=== PATIENT | male | born 1970 | race Caucasian/White ===

== ENCOUNTER 2021-07-30 09:26 | Emergency (ER) | payer BC, MEDICAID ==
[~2021-07-30] VITALS: Ht 172.7 cm; Wt 96.4 kg
[2021-07-30 09:30] VITALS: BP 162/71
[2021-07-30] MEDS ORDERED: LIDO700A32 TOP (10:07)
== END 2021-07-30 10:09 | disposition home or self-care (01) ==
LOC: ER 09:26
DX: S29.011A Strain of muscle and tendon of front wall of thorax, initial encounter (principal); E78.00 Pure hypercholesterolemia, unspecified; Z87.442 Personal history of urinary calculi; Z79.899 Other long term (current) drug therapy; X58.XXXA Exposure to other specified factors, initial encounter; Y93.89 Activity, other specified; Y92.89 Other specified places as the place of occurrence of the external cause; Y99.8 Other external cause status
CPT/HCPCS: 99282

== ENCOUNTER 2023-08-27 11:09 | Emergency (ER) | payer BC, MEDICAID ==
[~2023-08-27 11:09] MED LIST: LIDO700A32 TOP
[2023-08-27 11:18] VITALS: TEMP 98.5
[2023-08-27] MEDS ORDERED: ketorolac trometh. 30mg/ml inj. IV ONE (12:00)
[2023-08-27] MEDS: ketorolac tromethamine 15mg/ml inj. IV ONE (12:19)
[2023-08-27 12:22] LABS: BASOPHILS % (AUTO) 0.4 % (0-1); EOSINOPHILS # (AUTO) 0.1 X10'3 (0-0.9); HEMATOCRIT 42.7 % (42.0-52.0); LYMPHOCYTES # (AUTO) 0.9 X10'3 (1.1-4.8); MEAN CORPUSCULAR HEMOGLOBIN 30.9 PG (27.0-31.0); MEAN CORPUSCULAR HGB CONC 35.1 g/dL (33.0-36.5); MEAN CORPUSCULAR VOLUME 88.2 FL (78-98); MEAN PLATELET VOLUME 9.4 FL (7.4-10.4); MONOCYTES # (AUTO) 0.5 X10'3 (0-0.9); MONOCYTES % (AUTO) 5.2 % (2-12); NEUTROPHILS # (AUTO) 8.5 X10'3 (1.8-7.7); NEUTROPHILS % (AUTO) 84.4 % (42-75); PLATELET COUNT 208 X10'3 (140-440); RED BLOOD COUNT 4.84 X10'6 (4.70-6.10); RED CELL DISTRIBUTION WIDTH 12.6 % (11.5-14.5)
[2023-08-27 12:23] LABS: BILIRUBIN,URINE NEGATIVE (Neg); CLARITY,URINE CLOUDY (Clear); COLOR,URINE YELLOW (Yellow); GLUCOSE, URINE NEGATIVE (Neg); KETONES,URINE NEGATIVE (Neg); LEUKOCYTE ESTERASE ,URINE NEGATIVE (Neg); NITRITES, URINE NEGATIVE (Neg); OCCULT BLOOD,URINE LARGE (Neg); PROTEIN,URINE NEGATIVE (Neg); UROBILINOGEN,URINE 0.2 E.U/dL (0.2-1.0)
[2023-08-27 12:33] LABS: UA COLLECTION TYPE CLN CATCH MIDSTREAM
[2023-08-27 12:34] LABS: RBC,URINE TNTC /HPF (0-2)
[2023-08-27 12:36] LABS: AMORPHOUS PHOSPHATES 3+
[2023-08-27 12:38] LABS: BACTERIA,URINE 1+ /HPF (Neg); SQUAMOUS EPITHELIAL CELL,UR FEW /LPF (FEW)
[2023-08-27 12:47] LABS: ANION GAP 8 (8-16); BLOOD UREA NITROGEN 18 MG/DL (7-18); BUN/CREATININE RATIO 15.8 (10.0-20.0); CALCIUM 9.2 MG/DL (8.5-10.1); CHLORIDE 109 MMOL/L (99-107); CREATININE 1.14 MG/DL (0.60-1.10); GLUCOSE 105 MG/DL (70-104); POTASSIUM 4.1 MMOL/L (3.5-5.1); SODIUM 143 MMOL/L (135-145); eGFR 67 ML/MIN
[2023-08-27] MEDS: normal saline 1000ML IV soln IVB ONE (13:16)
[2023-08-27] MEDS: CefTRIAXone 2gm/D5W 50ml BAG 50 ML IV ONE (13:16)
[2023-08-27] MEDS ORDERED: ONDA4TAB12 PO (13:38)
[2023-08-27] MEDS ORDERED: CEPH-585 PO (13:38)
[2023-08-27] MEDS ORDERED: HYDR-3973 PO (13:38)
[2023-08-27] MEDS ORDERED: FLO0.4C PO (13:38)
[2023-08-27 15:55] VITALS: BP 148/90; PULSE 75; RESP 14; O2SAT 100
[2023-08-27] MEDS ORDERED: OXYC-145 PO (17:43)
== END 2023-08-27 15:58 | disposition home or self-care (01) ==
LOC: ER 11:10
DX: N20.0 Calculus of kidney (principal); E78.00 Pure hypercholesterolemia, unspecified; Z79.899 Other long term (current) drug therapy
CPT/HCPCS: 36415; 74176; 80048; 81001; 85025; 87088; 96365; 96375; 99285; J0696; J1885; J7030

== ENCOUNTER 2023-08-30 12:34 | Emergency (ER) | payer BC, MEDICAID ==
[~2023-08-30] VITALS: Ht 174 cm; Wt 103.1 kg
[~2023-08-30 12:34] MED LIST changes: +CEPH-585 PO; +FLO0.4C PO; +ONDA4TAB12 PO; +OXYC-145 PO
[2023-08-30 12:39] VITALS: BP 149/77; PULSE 79; RESP 16; TEMP 97.9; O2SAT 98
[2023-08-30 12:58] LABS: BILIRUBIN,URINE NEGATIVE (Neg); CLARITY,URINE CLEAR (Clear); COLOR,URINE YELLOW (Yellow); GLUCOSE, URINE NEGATIVE (Neg); KETONES,URINE NEGATIVE (Neg); LEUKOCYTE ESTERASE ,URINE NEGATIVE (Neg); NITRITES, URINE NEGATIVE (Neg); OCCULT BLOOD,URINE TRACE-INTACT (Neg); PROTEIN,URINE NEGATIVE (Neg); UROBILINOGEN,URINE 0.2 E.U/dL (0.2-1.0)
[2023-08-30 13:01] LABS: UA COLLECTION TYPE CLN CATCH MIDSTREAM
[2023-08-30 13:04] LABS: BACTERIA,URINE FEW /HPF (Neg); MUCUS STRANDS FEW /LPF (Neg); SQUAMOUS EPITHELIAL CELL,UR NONE SEEN /LPF (FEW); WBC,URINE 0-4 /HPF (0-4)
[2023-08-30 13:06] LABS: AMORPHOUS PHOSPHATES 2+
[2023-08-30] MEDS: ondansetron/PF 4mg/2ml inj IV ONE (13:40)
[2023-08-30] MEDS: ketorolac tromethamine 15mg/ml inj. IV ONE (13:40)
[2023-08-30] MEDS: morphine 4 MG/ML inj SYRINge IV ONE (13:41)
[2023-08-30] MEDS: normal saline 1000ML IV soln IVB ONE (13:41)
[2023-08-30 14:40] LABS: ALBUMIN 3.6 G/DL (3.4-5.0); ANION GAP 9 (8-16); BLOOD UREA NITROGEN 22 MG/DL (7-18); BUN/CREATININE RATIO 16.2 (10.0-20.0); CALCIUM 8.6 MG/DL (8.5-10.1); CHLORIDE 105 MMOL/L (99-107); CREATININE 1.36 MG/DL (0.60-1.10); GLUCOSE 98 MG/DL (70-104); POTASSIUM 3.8 MMOL/L (3.5-5.1); SODIUM 142 MMOL/L (135-145); eCRCL 60 ML/MIN; eGFR 54 ML/MIN
[2023-08-30 14:43] LABS: BASOPHILS % (AUTO) 0.4 % (0-1); EOSINOPHILS % (AUTO) 0.3 % (0-6); HEMATOCRIT 37.6 % (42.0-52.0); HEMOGLOBIN 13.3 g/dl (14.0-17.9); LYMPHOCYTES # (AUTO) 0.6 X10'3 (1.1-4.8); LYMPHOCYTES % (AUTO) 5.2 % (21-51); MEAN CORPUSCULAR HGB CONC 35.4 g/dL (33.0-36.5); MEAN CORPUSCULAR VOLUME 87.5 FL (78-98); MEAN PLATELET VOLUME 9.4 FL (7.4-10.4); MONOCYTES # (AUTO) 0.4 X10'3 (0-0.9); MONOCYTES % (AUTO) 3.7 % (2-12); NEUTROPHILS # (AUTO) 10.3 X10'3 (1.8-7.7); NEUTROPHILS % (AUTO) 90.4 % (42-75); PLATELET COUNT 163 X10'3 (140-440); RED BLOOD COUNT 4.29 X10'6 (4.70-6.10); RED CELL DISTRIBUTION WIDTH 12.1 % (11.5-14.5); WHITE BLOOD COUNT 11.4 X10'3 (4.5-11.0)
[2023-08-30] MEDS ORDERED: IBUP-1986 PO (14:54)
[2023-08-30] MEDS ORDERED: OXYC1TAB17 PO (14:54)
== END 2023-08-30 15:06 | disposition home or self-care (01) ==
LOC: ER 12:35
DX: N20.0 Calculus of kidney (principal); E78.00 Pure hypercholesterolemia, unspecified; Z79.2 Long term (current) use of antibiotics; Z79.1 Long term (current) use of non-steroidal anti-inflammatories (NSAID); Z79.899 Other long term (current) drug therapy
CPT/HCPCS: 36415; 80048; 81001; 85025; 96361; 96374; 96375; 99284; J1885; J2270; J2405; J7030